=== PATIENT | female | born 1980 | race Caucasian/White ===

== ENCOUNTER → 2016-12-11 | Outpatient (CLI) | payer BC ==
[~2016-12-11] MED LIST: FRRS300 PO; LBT100 PO; MTR600X PO; PRENTAB26 PO; SENN-65 PO
== END | disposition home or self-care (01) ==
LOC: C.PAPS 11:42
PROVIDERS: ATTEND Physician Assistant
DX: Z01.419 Encounter for gynecological examination (general) (routine) without abnormal findings (principal)

== ENCOUNTER → 2017-04-13 | Outpatient (CLI) | payer BC ==
[2017-04-13 18:18] LABS: URINE APPEARANCE CLEAR (CLEAR); URINE BILIRUBIN NEG (NEG); URINE COLOR YELLOW; URINE NITRITE NEG (NEG); URINE SPECIFIC GRAVITY 1.019 (1.000-1.030); UROBILINOGEN NEG (NEG)
[2017-04-13 18:20] LABS: MANUAL MICROSCOPIC REQUIRED? NO; REVIEW REQ? NO
== END | disposition home or self-care (01) ==
LOC: C.LABSPEC 17:50
PROVIDERS: ATTEND Obstetrics & Gynecology
DX: O09.521 Supervision of elderly multigravida, first trimester (principal)

== ENCOUNTER → 2017-04-21 | Outpatient (CLI) | payer BC ==
[2017-04-21 16:37] LABS: BASO % 0.2 %; BASO ABS # 0.02 K/uL (0-0.2); COMPLETE YES; EOS % 0.3 %; HEMATOCRIT 39.5 % (37-47); IG% 0.1 %; LYMPH % 22.6 %; LYMPH ABS # 2.07 K/uL (1.2-3.4); MEAN CELL VOLUME 83.7 fL (80-100); MEAN CORPUSCULAR HEMOGLOBIN 29.2 pg (25-34); MEAN CORPUSCULAR HGB CONC 34.9 g/dl (32-36); MEAN PLATELET VOLUME 10.4 fL (7.4-10.4); MONO % 5.8 %; PLATELET COUNT 250 K/uL (130-400); RED BLOOD COUNT 4.72 M/uL (4.2-5.4); WHITE BLOOD COUNT 9.17 K/uL (4.8-10.8)
== END | disposition home or self-care (01) ==
LOC: C.LAB1850 15:15
PROVIDERS: ATTEND Obstetrics & Gynecology
DX: O09.521 Supervision of elderly multigravida, first trimester (principal)

== ENCOUNTER → 2017-04-21 | Outpatient (CLI) | payer BC ==
[2017-04-24 00:44] LABS: CHLAMYDIA TRACH RNA*** NOT DETECTED (NOT DETECTED); GC (NEIS GONORRHOEAE)RNA** NOT DETECTED (NOT DETECTED)
== END | disposition home or self-care (01) ==
LOC: C.LABSPEC 17:36
PROVIDERS: ATTEND Obstetrics & Gynecology
DX: O09.521 Supervision of elderly multigravida, first trimester (principal)

== ENCOUNTER → 2017-04-27 | Outpatient (CLI) | payer BC ==
[2017-04-27 07:41] LABS: PATIENT HEIGHT 162.6 cm
[2017-04-27 09:53] LABS: URINE TOTAL PROTEIN < 5.0 mg/dl (0-11.9)
[2017-04-27 10:42] LABS: URINE COLLECTION TIME 24 HOURS; URINE TOTAL PROTEIN CALC < 105.0 mg/24 hr (0-149.1)
[2017-04-27 10:43] LABS: CREATININE 0.66 mg/dl (0.6-1.2)
== END | disposition home or self-care (01) ==
LOC: C.LAB1850 07:36
PROVIDERS: ATTEND Obstetrics & Gynecology
DX: Z87.59 Personal history of other complications of pregnancy, childbirth and the puerperium (principal)

== ENCOUNTER → 2017-05-04 | Outpatient (CLI) | payer BC ==
[2017-05-07 01:34] LABS: PARVOVIRUS IgG INDEX 0.4 (<0.9); PARVOVIRUS IgM INDEX 0.2 (<0.9)
== END | disposition home or self-care (01) ==
LOC: C.LAB1850 07:45
PROVIDERS: ATTEND Obstetrics & Gynecology
DX: Z20.828 Contact with and (suspected) exposure to other viral communicable diseases (principal)

== ENCOUNTER → 2017-06-03 | Outpatient (CLI) | payer BC ==
[2017-06-03 23:11] LABS: GTGD 50 Grams
== END | disposition home or self-care (01) ==
LOC: C.LAB1850 15:36
PROVIDERS: ATTEND Obstetrics & Gynecology
DX: O09.522 Supervision of elderly multigravida, second trimester (principal)

== ENCOUNTER → 2017-08-25 | Outpatient (CLI) | payer BC ==
[2017-08-25 17:37] LABS: HEMATOCRIT 32.6 % (37-47)
[2017-08-25 17:50] LABS: GTGD 50 Grams
[2017-08-25 18:17] LABS: URINE APPEARANCE CLEAR (CLEAR); URINE BILIRUBIN NEG (NEG); URINE COLOR YELLOW; URINE EPITHELIAL CELL AUTO >30 /lpf (0-5); URINE NITRITE NEG (NEG); URINE PH 7.5 (4.5-7.5); URINE SPECIFIC GRAVITY 1.009 (1.000-1.030); UROBILINOGEN NEG (NEG)
[2017-08-25 18:18] LABS: MANUAL MICROSCOPIC REQUIRED? NO; REVIEW REQ? NO
== END | disposition home or self-care (01) ==
LOC: C.LAB1850 16:38
PROVIDERS: ATTEND Obstetrics & Gynecology
DX: O09.523 Supervision of elderly multigravida, third trimester (principal)

== ENCOUNTER → 2017-08-31 | Outpatient (CLI) | payer BC | END | disposition home or self-care (01) | LOC: C.LAB1850 07:28 | PROVIDERS: ATTEND Obstetrics & Gynecology | DX: O28.1 Abnormal biochemical finding on antenatal screening of mother (principal); Z3A.00 Weeks of gestation of pregnancy not specified ==

== ENCOUNTER → 2017-10-20 | Outpatient (CLI) | payer BC | END | disposition home or self-care (01) | LOC: C.LABSPEC 17:27 | PROVIDERS: ATTEND Obstetrics & Gynecology | DX: O09.523 Supervision of elderly multigravida, third trimester (principal) ==

== ENCOUNTER 2017-11-07 10:07 | Inpatient (IN) | payer BC ==
[~2017-11-07] VITALS: Ht 162.6 cm; Wt 79.0 kg
[2017-11-07] MEDS ORDERED: LACTATED RINGER'S 1000ML 1,000 ML IV PRN (10:55)
[2017-11-07] MEDS ORDERED: LACTATED RINGER'S 1000ML 500 ML IV PRN ×2 (10:55→20:42)
[2017-11-07] MEDS ORDERED: OXYTOCIN 30 UNITS/500ML NSS IV PRN (11:00)
[2017-11-07 11:29] VITALS: Ht 162.6 cm; Wt 79.0 kg
[2017-11-07 11:30] LABS: HEMATOCRIT 34.4 % (37-47); HEMOGLOBIN 10.8 g/dL (12.0-16.0); MEAN CELL VOLUME 74.5 fL (80-100); MEAN CORPUSCULAR HEMOGLOBIN 23.4 pg (25-34); MEAN CORPUSCULAR HGB CONC 31.4 g/dl (32-36); MEAN PLATELET VOLUME 10.6 fL (7.4-10.4); PLATELET COUNT 215 K/uL (130-400); RED CELL DISTRIBUTION WIDTH CV 14.2 % (11.5-14.5); RED CELL DISTRIBUTION WIDTH SD 38.1 fL (36.4-46.3); WHITE BLOOD COUNT 13.45 K/uL (4.8-10.8)
--- NOTE | 2017-11-07 11:30 | Medical Student: [facility] ---
Med Student History & Physical Date of Service Nov 07, 2017. Chief Complaint R/O Ruptured Membrane History of Present Illness Source: patient Patient is a 37yo 38(+5) week estimated due date 11/16 by last menstrual period presenting to hospital with suspected ruptured membranes. Patient believes membranes ruptured at 11pm on 11/06, fluid is clear with no evidence of vaginal bleeding. She has experienced no contractions but does report discomfort involving entire abdomen. Normal movement felt. HX of gestational HTN over last month of previous and immediately after delivery. Labs: blood type O+, antibody (-), GBS (-), rubella immune Denies: fever, chills, HERRERA, chest pain, NVDC, abdominal pain Reports: SOB with exertion, idiopathic visual spotting that was worked up OB History Deliver of 8lb3oz viable male via vacuum assisted vaginal delivery over fourth degree laceration of perineum with epidural anesthesia Past Medical History Genital herpes virus Gestational HTN with previous Past Surgical History Hamilton teeth Family History Non-contributory Social History Smoking Status: Never Smoker Smokeless Tobacco Use: No Alcohol Use: none Drug Use: none Marital Status: Housing status: lives with family Occupational Status: employed Allergies Coded Allergies: No Known Allergies (Unverified , 04/28/15) Home Medications Ferrous Sulfate (Ferrous Sulfate), 325 MG PO DAILY Ibuprofen (Ibuprofen), 600 MG PO Q4H PRN for PAIN, HERRERA, CRAMPING OR FEVER Labetalol HCl (Labetalol HCl), 100 MG PO BID Multivit/Min/Iron/Fol Ac/Pren ( Vitamin), 1 TAB PO DAILY Senna/Docusate Sod (Senokot S), 1 TAB PO QAM Review of Systems Constitutional: No fever, No chills Eyes: No worsening of vision Respiratory: + dyspnea on exertion, No dyspnea at rest Cardiovascular: No chest pain Abdomen: No pain, No nausea, No vomiting, No diarrhea, No constipation Physical Exam General Appearance: WD/WN, no apparent distress Head: normocephalic, atraumatic Eyes: normal inspection, sclerae normal ENT: hearing grossly normal Neck: supple, no JVD, trachea midline Respiratory/Chest: lungs clear, normal breath sounds, no respiratory distress, no accessory muscle use Cardiovascular: regular rate, rhythm, no edema, no gallop, no JVD, no murmur Abdomen / GI: non tender Fundal Height: Term Genitourinary - Female: + pertinent finding (Soft cervix, 50% effaced, -3 station. +Pooling) Back: normal range of motion Neurologic/Psych: alert, normal mood/affect, oriented x 3 Skin: normal color, warm/dry Monitoring External Monitor: HR baseline 140s moderate variability, no decels noted: Category 1 tracing Tocodynamometer: Regular contractions at approximately 2min apart Laboratory Results Test 11/07/17 10:55 Assessment and Plan Expectant management of normal labor and delivery - Pitocin use if no changes at next cervical check due to concern prolonged rupture of membranes - Patient is ambulatory at this point - Frequent cervical checks for progression evaluation - Consult anesthesiology for epidural placement Contact provider for non-reassuring monitoring unresponsive to interventions, temp >100.8, HR >130 or <60, BP <100/60, O2 <92%
[2017-11-07] MEDS ORDERED: VALA500T60 PO (11:34)
[2017-11-07 11:54] LABS: ALBUMIN 2.6 gm/dl (3.4-5.0); CALCIUM 8.4 mg/dl (8.5-10.1); CREATININE 0.83 mg/dl (0.60-1.20); POTASSIUM 3.9 mmol/L (3.5-5.1)
[2017-11-07 11:57] LABS: TOTAL PROTEIN 7.3 gm/dl (6.4-8.2)
[2017-11-07] MEDS: LACTATED RINGER'S 1000ML 1,000 ML IV SCH ×2 (17:04→20:36)
[2017-11-07] MEDS ORDERED: FENTANYL 2MCG/ML ROPIV 1.25MG/ML 100ML BAG EPI ONE (19:55)
[2017-11-07] MEDS ORDERED: EpHEDrine SULFATE INJ 50 MG/ML AMP ONE (19:55)
[2017-11-07] MEDS ORDERED: FENTANYL CITRATE INJ 50 MCG/1 ML 2 ML VIAL ONE (19:55)
[2017-11-07] MEDS ORDERED: BUPIVACAINE 0.25% 30 ML VIAL ONE (19:55)
[2017-11-07] MEDS ORDERED: NALOXONE HCL INJ 1 MG in SODIUM CHLORIDE 0.9% 1000ML 1,000 ML IV PRN (20:42)
[2017-11-07] MEDS ORDERED: NALBUPHINE HCL INJ 10 MG/ML AMP IV PRN (20:45)
[2017-11-07] MEDS ORDERED: NALOXONE HCL INJ 0.4 MG/1 ML VIAL/CARP IV PRN (20:45)
[2017-11-07] MEDS ORDERED: FENTANYL 2MCG/ML ROPIV 1.25MG/ML 100ML BAG EPI PRN (20:45)
[2017-11-07] MEDS ORDERED: EpHEDrine SULFATE INJ 50 MG/ML AMP IV PRN (20:45)
[2017-11-07] MEDS ORDERED: DiphenhydrAMINE HCL 50 MG/ML VIAL IV PRN (20:45)
[2017-11-08] VITALS (7 sets, daily range): BP systolic 118–136; BP diastolic 75–90; PULSE 79–86; TEMP 36.4–37.1; O2SAT 97–98
--- NOTE | 2017-11-08 00:58 | DELIVERY SUMMARY ---
DATE OF OPERATION: 11/07/2017 PREDELIVERY DIAGNOSES: 1. A 37-year-old G4, P1-0-2-1 at 38 weeks 5 days. 2. Spontaneous rupture of membranes. 3. History of herpes simplex virus. POSTDELIVERY DIAGNOSES: All of the above plus tight nuchal cord. PROCEDURE: Spontaneous vaginal delivery and repair of second degree perineal laceration. FINDINGS: Viable female . Apgars 7 and 7. Weight pending, please see nursery records. ESTIMATED BLOOD LOSS: 300 mL. DESCRIPTION OF DELIVERY: The patient progressed to complete with epidural anesthesia and then began to push. She spontaneously vaginally delivered a viable female from the cephalic presentation. The head delivered in the right occiput anterior position. The nuchal cord was noted and unable to be reduced. One attempt was made to deliver the baby through, however this was also impossible. Therefore, the cord was doubly clamped and cut prior to delivery of the shoulders. The anterior shoulder delivered followed by the posterior shoulder followed by the body. The baby was immediately handed off to the waiting pediatrics team. The cord segment was obtained for cord gases. Cord blood was obtained. The placenta was delivered spontaneously intact with a 3-vessel cord. Of note, the placenta appeared to have two different lobes. The uterus and vagina were swept of all clots and debris. Pitocin was given. The uterus became firm. The cervix, vagina and perineum were inspected and a second degree perineal laceration was noted and repaired in standard fashion with 3-0 Vicryl in a running stitch. Excellent hemostasis was observed. All sponge, instrument and needle counts were correct at the conclusion of the delivery x2. I attest to the content of the Intraoperative Record and any orders documented therein. Any exception s are noted below.
[2017-11-08] MEDS ORDERED: LANOLIN OINT EXT PRN (05:15)
[2017-11-08] MEDS ORDERED: OXYCODONE/ACETAMINOPHEN 5-325 TAB PO PRN (05:15)
[2017-11-08] MEDS ORDERED: HYDROCORTISONE ACETATE 25 MG SUPP PR PRN (05:15)
[2017-11-08] MEDS ORDERED: BENZOCAINE 20% AER SPR 82.5 GM CAN EXT PRN (05:15)
[2017-11-08] MEDS ORDERED: SUPERCREAM 0.870 % 15GM JAR EXT PRN (05:15)
[2017-11-08] MEDS ORDERED: OXYTOCIN 30 UNITS/500ML NSS IV PRN (05:15)
[2017-11-08] MEDS: IBUPROFEN 600 MG TAB PO PRN ×3 (05:39→17:01)
--- NOTE | 2017-11-08 06:46 | Anesthesia Procedure Note ---
Anesthesia Epidural Removal Nt Date & Time Nov 08, 2017 at 06:46 Vital Signs Pain Intensity: 4.0 Vital Signs Past 12 Hours Date Time Temp Pulse Resp B/P (MAP) Pulse Ox O2 Delivery O2 Flow Rate FiO2 11/08/17 03:25 36.8 86 16 132/89 (103) 98 Room Air 11/08/17 02:00 98 Room Air 11/08/17 02:00 36.8 80 18 124/84 (97) 98 Room Air Notes Mental Status: alert / awake / arousable, participated in evaluation Nausea / Vomiting: adequately controlled Pain: adequately controlled Airway Patency, RR, SpO2: stable & adequate BP & HR: stable & adequate Hydration State: stable & adequate Neuraxial Anesthesia: was administered Anesthetic Complications: no major complications apparent, pt satisfied with anesthetic care Epidural: removed without complications, with tip intact
[2017-11-08] MEDS: DOCUSATE SODIUM 100 MG CAP PO SCH ×2 (09:00→20:15)
--- NOTE | 2017-11-08 09:47 | OB/GYN Progress Note ---
[employer] Progress Note Date of Service Nov 08, 2017. Subjective conversation w/ patient, physical exam Ambulation: ambulating normally Voiding: no voiding problems Passing Gas: Yes Diet Tolerance: Regular Diet Lochia: Moderate Feeding Type: Breast Feeding Pain: controlled Review of Systems Constitutional: No problem reported Respiratory: No problem reported Cardiac: No problem reported Breast: No problem reported Abdomen: No problem reported Female : No problem reported Objective Vital Signs Date Time Temp Pulse Resp B/P (MAP) Pulse Ox O2 Delivery O2 Flow Rate FiO2 11/08/17 07:45 97 Room Air 11/08/17 07:45 37.1 84 18 124/81 (95) 97 Room Air 11/08/17 03:25 36.8 86 16 132/89 (103) 98 Room Air 11/08/17 02:00 98 Room Air 11/08/17 02:00 36.8 80 18 124/84 (97) 98 Room Air Physical Exam General Appearance: WELL-APPEARING, NO APPARENT DISTRESS Respiratory/Chest: no respiratory distress Cardiovascular: regular rate, rhythm Abdomen: non tender, soft Fundus: Firm Extremities: normal inspection Laboratory Results Last 24 Hours Test 11/07/17 11:08 White Blood Count 13.45 K/uL Red Blood Count 4.62 M/uL Hemoglobin 10.8 g/dL Hematocrit 34.4 % Mean Corpuscular Volume 74.5 fL Mean Corpuscular Hemoglobin 23.4 pg Mean Corpuscular Hemoglobin Concent 31.4 g/dl RDW Standard Deviation 38.1 fL RDW Coefficient of Variation 14.2 % Platelet Count 215 K/uL Mean Platelet Volume 10.6 fL Sodium Level 138 mmol/L Potassium Level 3.9 mmol/L Chloride Level 105 mmol/L Carbon Dioxide Level 24 mmol/L Anion Gap 9.0 mmol/L Blood Urea Nitrogen 8 mg/dl Creatinine 0.83 mg/dl Est Creatinine Clear Calc Drug Dose 94.4 ml/min Estimated GFR () 104.4 Estimated GFR (Non- 90.1 BUN/Creatinine Ratio 9.6 Random Glucose 70 mg/dl Calcium Level 8.4 mg/dl Total Bilirubin 0.4 mg/dl Aspartate Amino Transf (AST/SGOT) 15 U/L Alanine Aminotransferase (ALT/SGPT) 12 U/L Alkaline Phosphatase 182 U/L Total Protein 7.3 gm/dl Albumin 2.6 gm/dl Globulin 4.7 gm/dl Albumin/Globulin Ratio 0.6 Assessment and Plan Post- Day Number: 1 Continue Routine Care: PPD# 1 doing well. Routine care.
[2017-11-09] MEDS: IBUPROFEN 600 MG TAB PO PRN (03:43)
[2017-11-09 04:15] VITALS: BP 119/81; PULSE 86; TEMP 36.7
--- NOTE | 2017-11-09 06:27 | Progress Note ---
Subjective Nov 09, 2017. Subjective conversation w/ patient (Patient seen and examined at bedside) Ambulation: ambulating normally Voiding: no voiding problems Diet Tolerance: Regular Diet Lochia: Moderate Feeding Type: Breast Feeding Pain: Mild cramping with , improved with analgesia Review of Systems Constitutional: No fever, No chills Respiratory: No shortness of breath Cardiac: No chest pain Abdomen: No nausea, No vomiting Female : No dysuria Objective Vital Signs Date Time Temp Pulse Resp B/P (MAP) Pulse Ox O2 Delivery O2 Flow Rate FiO2 11/09/17 04:15 36.7 86 18 119/81 (94) Room Air 11/08/17 23:30 Room Air 11/08/17 23:16 36.9 79 18 120/75 (90) Room Air 11/08/17 19:00 36.4 82 20 124/84 (97) Room Air 11/08/17 15:30 Room Air 11/08/17 15:30 36.6 79 20 136/90 (105) Room Air 11/08/17 12:00 36.8 80 18 118/77 (91) 97 Room Air 11/08/17 07:45 97 Room Air 11/08/17 07:45 37.1 84 18 124/81 (95) 97 Room Air Physical Exam General Appearance: WELL-APPEARING, WD/WN, NO APPARENT DISTRESS Respiratory/Chest: lungs clear, normal breath sounds Cardiovascular: regular rate, rhythm Abdomen: soft Fundus: Firm, Non-Tender, Relation to Umbilicus (2 below) Extremities: no calf tenderness Laboratory Results Last 24 Hours Test 11/09/17 06:18 Medications Current Inpatient Medications Medications (Trade) Dose Ordered Sig/Ramila Route Start Time Stop Time Status Last Admin Dose Admin Oxytocin (Pitocin IV) 30 units UD PRN IV 11/08/17 05:15 12/08/17 05:14 Benzocaine (Dermoplast Aero Spr) 1 appln PRN PRN EXT 11/08/17 05:15 12/08/17 05:14 11/08/17 05:41 82.5 APPLN Cocaine HCl (Supercream 0.870% Cr) BID PRN EXT 11/08/17 05:15 11/22/17 05:14 Hydrocortisone Acetate (Anusol Hc Supp) 25 mg BID PRN [place] 11/08/17 05:15 12/08/17 05:14 Lanolin (Lanolin Oint) PRN PRN EXT 11/08/17 05:15 12/08/17 05:14 Ibuprofen (Motrin Tab) 600 mg Q4H PRN PO 11/08/17 05:15 12/08/17 05:14 11/09/17 03:43 600 MG Oxycodone/ Acetaminophen (Percocet 5-325mg Tab) 1 tab Q4H PRN PO 11/08/17 05:15 11/22/17 05:14 Bisacodyl (Dulcolax Tab) 5 mg 20 PO 11/09/17 20:00 11/09/17 20:01 Docusate Sodium (coLACE CAP) 100 mg BID PO 11/08/17 08:00 12/08/17 07:59 11/08/17 20:15 100 MG Assessment and Plan Post- Day#: 2 Continue Routine Care: 37 year old s/p NVD day 2 - O+, rubella immune, GBS -ve - pt doing well clinically - continue to encourage ambulation, and analgesia prn - vitals reviewed and wnl - pt would like d/c today so will review d/c instructions Resident Physician Supervision Note: I was present with Dr. Stern during the history and exam. I discussed the case with the resident and agree with the findings and plan as documented in the note. Any exceptions or clarifications are listed here: Doing well, discharge to home. Instructions reviewed. RTO 6w. Documented By: Dee Sorto Resident Tracking Resident Involvement: Resident Care Provided Care Provided: OB Delivery
[2017-11-09 06:40] LABS: HEMATOCRIT 31.7 % (37-47); HEMOGLOBIN 10.2 g/dL (12.0-16.0)
[2017-11-09 07:15] VITALS: BP 125/83; PULSE 69; TEMP 36.8; O2SAT 97
--- NOTE | 2017-11-09 07:29 | Discharge Instructions ---
Discharge Instructions Date of Service Nov 09, 2017. Admission Reason for Admission: R/O Ruptured Membrane Discharge Discharge Diagnosis / Problem: Vaginal Delivery Discharge Goals Goal(s): Routine recovery after delivery Medications Continue Dispensed Medications: supercream, dermaplast, tucks, lansinoh Activity Recommendations Activity Limitations: per Instructions/Follow-up section . Instructions / Follow-Up Instructions / Follow-Up ACTIVITY RECOMMENDATIONS: * Gradual return to full activity over the next 2-3 weeks. * No lifting - nothing heavier than baby over the next 2-3 weeks. * Do not engage in vigorous exercise, sexual activity or sports until cleared by your physician. * Do not drive or operate any motorized equipment until cleared by your physician. * You may shower/bathe daily. MEDICATIONS: For discomfort or pain, you may use Acetaminophen (Tylenol), Ibuprofen (Advil), or Naproxen (Aleve) following the package directions. For constipation you may use Colace following the package directions. BREAST CARE: If you are not breast feeding: * Wear a supportive bra 24 hours a day for one to two weeks. * Avoid stimulating your breasts and nipples as much as possible during the first few weeks after delivery. * When taking a shower, have the warm water hit your back, not breasts. * When your breasts feel full, apply ice packs. Usually three to four times a day helps ease the discomfort. * Take a mild pain medication (Tylenol / Motrin) when you are uncomfortable. If breast feeding: * Use breast milk to lubricate nipples. Lansinoh cream may be used for sore nipples. You do not need to remove cream prior to breast feeding. If using a different brand of cream, check the label for directions regarding removal of cream prior to nursing. * Wear a supportive bra. * If having problems with breasts or breast feeding, call a databases computer consultant or your health care provider. EPISIOTOMY CARE: After delivery, if you have an episiotomy (stitches), the following steps will ease discomfort and aid healing. * For the first 24 hours after delivery, place ice packs next to your episiotomy to help reduce swelling. * After the first 24 hour-period, sitz baths, either portable or in the tub, are suggested. A shower with a shower arm sprayed over the episiotomy may be comforting. * Nisha care should be done after each voiding and bowel movement. Squirt warm water from a plastic bottle over the perineum (region of the body between the anus and urinary opening) and pat dry. * Use Dermoplast to ease discomfort. Shake container. Trent directly over the episiotomy. Place a Tucks on a clean sanitary pad next to your episiotomy. SPECIAL CARE INSTRUCTIONS: When you are discharged from the hospital, it is important for you to follow the instructions listed below: * During the first week at home, you should be able to care for yourself and your baby. In addition, the usual light household activities are encouraged. * Limit your activities to the way you feel. Do not try to clean the house or move furniture. Be sensible. * If you actively engage in sports and have done so up until the time of your delivery, you may resume these activities as soon as you feel able. This may take up to one month or even longer. Use good judgment. * Continue to take your vitamins for at least six weeks after the of your baby. * Your diet need not be limited unless you were on a special diet before your delivery. Breast-feeding mothers need around 2500 calories per day and at least 64-80 ounces of fluid per day (8 to 10 glasses). * You should eat foods from the four major food groups. Crash diets or fad diets are to be avoided. Eating lean meats, fresh fruits and vegetables, low-fat dairy products, high fiber foods and a regular exercise program, will help you get back to your pre- weight without putting your health at risk. * Constipation is sometimes a problem after delivery. Take a mild laxative as needed. If breast feeding, Milk of Magnesia is acceptable to use. You may use a suppository or Fleets enema if no episiotomy. * A daily shower or tub bath is suggested. Be sure to thoroughly and gently dry the perineum. * A bloody vaginal discharge will usually continue until around four weeks post . A small amount of bleeding may continue for as long as six weeks. Vaginal discharge changes from the bright red bleeding after delivery to pink then brownish and finally yellowish-pink before becoming white and disappearing. * Bleeding may increase with activity. Your first period may come in 4-8 weeks. If you are breast feeding, your period may be delayed even longer. * Thomas (sex) can begin whenever both you and your partner feel comfortable and do not have any form of genital infection. It is recommended that you wait at least six weeks for internal and external healing to occur. If you have questions, please talk to your health care practitioner. A condom should be used to prevent infection and . * Foreplay, gentle intercourse and lubrication is very important the first several times to prevent pain. A water-based lubricant such as K-Y jelly or Astroglide may be used. * If you have RH negative blood and your baby is RH positive, you will receive RHOGAM by injection prior to discharge. The nurse will give you a card to keep with you that has the date and place that you received RHOGAM after delivery. * During your care, you had a Rubella screen done to check for the presence of rubella antibodies in your blood. If your test was negative, you will receive a Rubella vaccine prior to discharge. This vaccine may cause a fever, soreness at the injection site and flu-like symptoms. If these symptoms persist, notify your health care practitioner. is not advised for one month after a Rubella vaccine. * Verbalizes understanding of car seat law as reviewed with patient nursing. * Car Seat hand-out given and reviewed with patient by nursing. * Shaken baby information reviewed with patient by nursing. Call you doctor if: * Heavy bleeding (saturating several pads an hour) or passing clots the size of your fist. * A fever >101 degrees F (38.3 degrees C) on two occasions four hours apart and /or chills. * Unusual pain in the pelvic or vaginal areas. * "Baby Blues" lasting longer than two weeks. If you have any questions or concerns, call your health care practitioner at . FOLLOW UP VISIT: * Please call the office at to schedule a 6 week examination. It is important you keep this appointment. It is important for you to make arrangements for either yearly or twice yearly check-ups thereafter. Current Hospital Diet Patient's current hospital diet: Regular OB Diet Discharge Diet Recommended Diet: Regular Diet Pending Studies Studies pending at discharge: no Medical Emergencies . Who to Call and When: Medical Emergencies: If at any time you feel your situation is an emergency, please call 911 immediately. . Non-Emergent Contact Non-Emergency issues call your: Primary Care Provider . . "Provider Documentation" section prepared by Christina Stern. . VTE Core Measure Inpt VTE Proph given/why not?: Treatment not indicated
[2017-11-09] MEDS: DOCUSATE SODIUM 100 MG CAP PO SCH (07:54)
[2017-11-09 13:30] VITALS: BP_DIAS 83; PULSE 69; TEMP 36.8
[2017-11-09] MEDS ORDERED: BISACODYL 5 MG TABEC PO SCH (20:00)
== END 2017-11-09 13:30 | disposition home or self-care (01) | DRG 774 ==
LOC: C.OPB 10:07 → C.LD 10:08 → C.OPB 10:56 → C.OBG 11-08 01:50 → EDSTATUS 11-16 10:06
PROVIDERS: ADMIT Obstetrics & Gynecology; ATTEND Obstetrics & Gynecology
PROC: 10E0XZZ Delivery of Products of Conception, External Approach (ICD-10-PCS; principal; 2017-11-07)
PROC: 0KQM0ZZ Repair Perineum Muscle, Open Approach (ICD-10-PCS; principal; 2017-11-07)
DX: O42.12 Full-term premature rupture of membranes, onset of labor more than 24 hours following rupture (principal); O70.1 Second degree perineal laceration during delivery; O98.32 Other infections with a predominantly sexual mode of transmission complicating childbirth; O69.1XX0 Labor and delivery complicated by cord around neck, with compression, not applicable or unspecified; Z3A.38 38 weeks gestation of pregnancy; O09.523 Supervision of elderly multigravida, third trimester; Z37.0 Single live birth; Z14.1 Cystic fibrosis carrier

== ENCOUNTER → 2018-01-19 | Outpatient (CLI) | payer BC ==
[~2018-01-19] MED LIST changes: -FRRS300 PO; -LBT100 PO; -MTR600X PO; -SENN-65 PO; +VALA500T60 PO
== END | disposition home or self-care (01) ==
LOC: C.LAB1850 15:18
PROVIDERS: ATTEND Obstetrics & Gynecology
DX: N91.2 Amenorrhea, unspecified (principal)

== ENCOUNTER → 2018-02-02 | Outpatient (CLI) | payer BC | END | disposition home or self-care (01) | LOC: C.LAB1850 13:04 | PROVIDERS: ATTEND Physician Assistant | DX: N91.2 Amenorrhea, unspecified (principal) ==